=== PATIENT | female | born 1985 | race Caucasian/White ===

== ENCOUNTER 2016-06-26 01:17 | Emergency (ER) | payer MEDICAID ==
[2016-02-12 09:18] VITALS: BMI 24.7
[~2016-06-26 01:17] MED LIST: EFFEXOR75 MG PO; HYDROCODON-ACE1 EAC7 PO; HYDROCODONE-APA1 TAB PO; NEURONTIN 300300 MG PO; PENICILLIN V P500 MG PO; PERCOCET 5-3251 TAB PO; XARELTO15 MG PO; XARELTO20 MG PO
== END 2016-06-26 02:30 | disposition home or self-care (01) ==
LOC: D.ER 01:17
DX: T78.49XA Other allergy, initial encounter (principal); X58.XXXA Exposure to other specified factors, initial encounter; J98.01 Acute bronchospasm; N93.8 Other specified abnormal uterine and vaginal bleeding; E87.6 Hypokalemia

== ENCOUNTER 2018-01-13 14:16 | Emergency (ER) | payer MEDICAID ==
[~2018-01-13] VITALS: Ht 157.5 cm; Wt 70.5 kg
[2018-01-13 14:22] VITALS: Ht 157.5 cm; Wt 70.5 kg
[2018-01-13] MEDS ORDERED: ERYTHROMYCIN OPT1 GM EACH EYE (17:15)
[2018-01-13 17:26] VITALS: BP 126/80
== END 2018-01-13 17:26 | disposition home or self-care (01) ==
LOC: D.ER 14:16
DX: S05.01XA Injury of conjunctiva and corneal abrasion without foreign body, right eye, initial encounter (principal); X58.XXXA Exposure to other specified factors, initial encounter; Y93.89 Activity, other specified; Y92.019 Unspecified place in single-family (private) house as the place of occurrence of the external cause; N63.10 Unspecified lump in the right breast, unspecified quadrant; Z86.718 Personal history of other venous thrombosis and embolism; Z79.01 Long term (current) use of anticoagulants; Z86.711 Personal history of pulmonary embolism; F17.200 Nicotine dependence, unspecified, uncomplicated

== ENCOUNTER 2018-05-05 13:23 | Emergency (ER) | payer MEDICAID ==
[~2018-05-05] VITALS: Ht 157.5 cm; Wt 77.3 kg
[~2018-05-05 13:23] MED LIST changes: +ERYTHROMYCIN OPT1 GM EACH EYE
[2018-05-05 13:31] VITALS: Ht 157.5 cm; Wt 77.3 kg
[2018-05-05] MEDS ORDERED: ULTRAM50 MG PO (13:33)
[2018-05-05] MEDS ORDERED: XARELTO20 MG PO (13:33)
[2018-05-05] MEDS ORDERED: VOLTAREN75 MG PO (15:54)
[2018-05-05] MEDS ORDERED: VIBRAMYCIN 100100 MG PO (15:54)
[2018-05-05 16:21] VITALS: BP 177/66
== END 2018-05-05 16:17 | disposition home or self-care (01) ==
LOC: D.ER 13:23
DX: L03.315 Cellulitis of perineum (principal)

== ENCOUNTER 2020-10-25 12:48 | Emergency (ER) | payer MEDICAID ==
[~2020-10-25] VITALS: Ht 157.5 cm; Wt 70.5 kg
[~2020-10-25 12:48] MED LIST changes: +ULTRAM50 MG PO; +VIBRAMYCIN 100100 MG PO; +VOLTAREN75 MG PO
[2020-10-25 12:54] VITALS: BP 124/81; Ht 157.5 cm; Wt 70.5 kg
[2020-10-25 13:49] LABS: SARS-CoV-2 ANTIGEN NEGATIVE- SARS-COV-2 (NEGATIVE)
[2020-10-25] MEDS ORDERED: FLUTICASONE PRO16 GM NASAL (14:10)
[2020-10-25] MEDS ORDERED: GUAIFEN-CODEINE10 ML PO (14:10)
[2020-10-25] MEDS ORDERED: AUGMENTIN 875-11 TAB PO (14:10)
== END 2020-10-25 14:36 | disposition home or self-care (01) ==
LOC: D.ER 12:48
PROVIDERS: Family Medicine
DX: J01.90 Acute sinusitis, unspecified (principal); Z72.0 Tobacco use; R51.9 Headache, unspecified